=== PATIENT | female | born 1980 | race Caucasian/White ===

== ENCOUNTER 2017-08-05 05:59 | Emergency (ER) | payer MEDICARE, MEDICAID ==
[~2017-08-05] VITALS: Ht 160 cm; Wt 60.8 kg
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
--- NOTE | 2017-08-05 06:14 | NUR ---
PT STATES SHE IS ON XANA 2MG AND ZOLOFT 50MG
[2017-08-05 06:16] VITALS: BP 111/65
[2017-08-05] MEDS ORDERED: LORAZEPAM 1 MG TABLET PO ONE (06:30)
[2017-08-05] MEDS ORDERED: LORAZEPAM 1 MG TABLET ONE (06:33)
== END 2017-08-05 06:40 | disposition home or self-care (01) ==
LOC: ER 06:02
DX: Z02.89 Encounter for other administrative examinations (principal); F41.9 Anxiety disorder, unspecified; F32.9 Major depressive disorder, single episode, unspecified; F43.10 Post-traumatic stress disorder, unspecified; J44.9 Chronic obstructive pulmonary disease, unspecified
CPT/HCPCS: 99283; A4606; Z7610